=== PATIENT | male | born 1970 | race Caucasian/White ===

== ENCOUNTER 2020-10-23 15:11 | Emergency (ER) | payer SELFPAY ==
[~2020-10-23] VITALS: Ht 165.1 cm; Wt 68.2 kg
[~2020-10-23 15:11] MED LIST: LIDOcaine 1% 30ml preserv. free vial ONE; ONDA4TAB59 PO
[2020-10-23 15:39] VITALS: BP 126/76
[2020-10-23] MEDS ORDERED: TETanus/Pertussis (Acell)/Diphther VAC/PF (Tdap-Adult) 0.5ml syringe IMVAC ONE (16:30)
[2020-10-23] MEDS ORDERED: CEPH-572 PO (17:20)
== END 2020-10-23 17:42 | disposition home or self-care (01) ==
LOC: ER 15:11
DX: S81.012A Laceration without foreign body, left knee, initial encounter (principal); F17.200 Nicotine dependence, unspecified, uncomplicated; Z79.2 Long term (current) use of antibiotics; Z79.899 Other long term (current) drug therapy; W29.3XXA Contact with powered garden and outdoor hand tools and machinery, initial encounter; Y93.89 Activity, other specified; Y92.89 Other specified places as the place of occurrence of the external cause; Y99.8 Other external cause status
CPT/HCPCS: 12032; 73564; 90471; 90715; 99283; J2001; 12002

== ENCOUNTER 2022-05-20 10:12 | Inpatient (IN) | payer BC ==
[~2022-05-20] VITALS: Ht 165.1 cm; Wt 64.0 kg
[~2022-05-20 10:12] MED LIST changes: -LIDOcaine 1% 30ml preserv. free vial ONE
[2022-05-20] MEDS ORDERED: acetaminophen 325mg tablet PO STA (10:51)
[2022-05-20] MEDS ORDERED: normal saline 1000ML IV soln IV ONE ×2 (10:55)
[2022-05-20] MEDS ORDERED: ondansetron/PF 4mg/2ml inj IV ONE (10:55)
[2022-05-20] MEDS ORDERED: ketorolac trometh. 30mg/ml inj. IV ONE (10:55)
[2022-05-20] MEDS ORDERED: CefTRIAXone 2gm/D5W 50ml BAG 50 ML IV ONE (10:55)
[2022-05-20] MEDS ORDERED: azithromycin/NS 500mg/250ml 250 ML IV ONE (10:55)
[2022-05-20 10:59] LABS: BASOPHILS % (AUTO) 0.1 % (0-1); EOSINOPHILS % (AUTO) 0.1 % (0-6); HEMATOCRIT 35.9 % (42.0-52.0); HEMOGLOBIN 11.7 g/dl (14.0-17.9); LYMPHOCYTES # (AUTO) 0.4 X10'3 (1.1-4.8); LYMPHOCYTES % (AUTO) 1.9 % (21-51); MEAN CORPUSCULAR HEMOGLOBIN 28.3 PG (27.0-31.0); MEAN CORPUSCULAR HGB CONC 32.5 g/dL (33.0-36.5); MEAN CORPUSCULAR VOLUME 87.2 FL (78-98); MEAN PLATELET VOLUME 6.9 FL (7.4-10.4); MONOCYTES # (AUTO) 0.4 X10'3 (0-0.9); NEUTROPHILS # (AUTO) 20.1 X10'3 (1.8-7.7); NEUTROPHILS % (AUTO) 95.9 % (42-75); PLATELET COUNT 556 X10'3 (140-440); RED BLOOD COUNT 4.12 X10'6 (4.70-6.10); RED CELL DISTRIBUTION WIDTH 13.4 % (11.5-14.5)
[2022-05-20] MEDS ORDERED: methylPREDNISolone sod succ 125mg/2ml vial IV ONE (11:00)
[2022-05-20 11:26] LABS: ALANINE AMINOTRANSFERASE 53 U/L (12-78); ALBUMIN 2.2 G/DL (3.4-5.0); ALBUMIN/GLOBULIN RATIO 0.4 (1.1-1.5); ALKALINE PHOSPHATASE 157 IU/L (46-116); ANION GAP 13 (8-16); ASPARTATE AMINO TRANSFERASE 51 U/L (10-37); BILIRUBIN,TOTAL 0.5 MG/DL (0.1-1.0); BLOOD UREA NITROGEN 18 MG/DL (7-18); BUN/CREATININE RATIO 12.8 (5.4-32.0); CALCIUM 8.3 MG/DL (8.5-10.1); CHLORIDE 92 MMOL/L (99-107); CREATININE 1.41 MG/DL (0.60-1.10); GLUCOSE 132 MG/DL (70-104); POTASSIUM 3.1 MMOL/L (3.5-5.1); SODIUM 130 MMOL/L (135-145); TOTAL CARBON DIOXIDE 25.5 MMOL/L (24-32); TOTAL PROTEIN 8.3 G/DL (6.4-8.2); eGFR 53 ML/MIN
[2022-05-20 11:28] LABS: TOTAL CELLS COUNTED 100
[2022-05-20 11:29] LABS: PLATELET ESTIMATE INCREASED
[2022-05-20] MEDS ORDERED: NO HOME MEDS (11:36)
[2022-05-20] MEDS ORDERED: ipratropium/albuterol 3ml nebule NEB ONE (12:00)
--- NOTE | 2022-05-20 12:00 | NUR ---
Spoke with Alfredo Singh regarding drop in patient blood pressure. Discussed another 500mL bolus of fluids and reasses.
--- NOTE | 2022-05-20 13:00 | NUR ---
Hospitalist at bedside. Patient diaphoretic and still hypotensive. Patient removed from all clothing, blankets removed, put in a gown. Afebrile at this time. Hospitalist and Alfredo Edward discussed another 500mL bolus. Addendum: 05/20/22 at 1339 by BERNICE Patient denying chest pain and/or increased SOB. Is c/o mild dizziness.
[2022-05-20] MEDS ORDERED: ondansetron/PF 4mg/2ml inj IV PRN (14:35)
[2022-05-20] MEDS ORDERED: acetaminophen 325mg tablet PO PRN (14:35)
[2022-05-20] MEDS ORDERED: magnesium 2GM in 50ml NS 50 ML IV PRN (14:35)
[2022-05-20] MEDS ORDERED: magnesium hydroxide 30ml (MOM) UD suspension PO PRN (14:35)
[2022-05-20] MEDS ORDERED: magnesium 4gm in 100ml NS 100 ML IV PRN (14:35)
[2022-05-20] MEDS ORDERED: mag hydrox/Alum hydrox/simeth 30ml oral suspension PO PRN (14:35)
[2022-05-20] MEDS ORDERED: potassium CL 10mEq/100ml bag 100 ML IV PRN (14:35)
[2022-05-20] MEDS ORDERED: magnesium Cl slow-release 64mg tablet PO PRN (14:35)
[2022-05-20] MEDS ORDERED: albuterol 2.5 MG/3 ML nebule NEB PRN (15:30)
[2022-05-20] MEDS: normal saline 1000ml 1,000 ML IV SCH ×2 (16:40→19:34)
[2022-05-20 19:30] VITALS: BP 103/61
[2022-05-20] MEDS: docusate sod 100mg capsule PO SCH (20:00)
[2022-05-20] MEDS: POTASSIUM BICARB 20meq eff tab 20 MEQ TABLET.EFF PO PRN (20:23)
[2022-05-20] MEDS: K and/or MAG REPLACEMENT MC SCH (20:23)
[2022-05-20 22:00] VITALS: BP 91/55
[2022-05-21 02:00] VITALS: BP 93/58
[2022-05-21] MEDS: POTASSIUM BICARB 20meq eff tab 20 MEQ TABLET.EFF PO PRN (05:07)
[2022-05-21 06:00] VITALS: BP 106/63
[2022-05-21] MEDS ORDERED: vancomycin/NS 1 GM ADD-VANTAGE 250 ML IV ONE (06:40)
--- NOTE | 2022-05-21 06:44 | NUR ---
Notified Dr. Baig patient BC positive from Anaerobic bottle IV start positive in 18 hours Gram Positive Cocci and Clusters. Received order for Vanco 1 gm IV now and then pharmacy to dose.
--- NOTE | 2022-05-21 06:44 | NUR ---
Patient in room PCU 3023. I have received report from ANNIE BROWN and had the opportunity to ask questions and assume patient care.
[2022-05-21 07:00] LABS: BASOPHILS % (AUTO) 0 % (0-1); EOSINOPHILS % (AUTO) 0 % (0-6); HEMATOCRIT 30.3 % (42.0-52.0); LYMPHOCYTES # (AUTO) 0.9 X10'3 (1.1-4.8); LYMPHOCYTES % (AUTO) 3.6 % (21-51); MEAN CORPUSCULAR HEMOGLOBIN 28.7 PG (27.0-31.0); MEAN CORPUSCULAR HGB CONC 33.1 g/dL (33.0-36.5); MEAN CORPUSCULAR VOLUME 86.5 FL (78-98); MONOCYTES # (AUTO) 0.4 X10'3 (0-0.9); MONOCYTES % (AUTO) 1.5 % (2-12); NEUTROPHILS # (AUTO) 23.7 X10'3 (1.8-7.7); NEUTROPHILS % (AUTO) 94.9 % (42-75); PLATELET COUNT 527 X10'3 (140-440); RED CELL DISTRIBUTION WIDTH 13.6 % (11.5-14.5)
[2022-05-21 07:09] LABS: ALANINE AMINOTRANSFERASE 42 U/L (12-78); ALBUMIN 1.7 G/DL (3.4-5.0); ALBUMIN/GLOBULIN RATIO 0.3 (1.1-1.5); ALKALINE PHOSPHATASE 112 IU/L (46-116); ANION GAP 9 (8-16); ASPARTATE AMINO TRANSFERASE 37 U/L (10-37); BILIRUBIN,TOTAL 0.1 MG/DL (0.1-1.0); BLOOD UREA NITROGEN 17 MG/DL (7-18); BUN/CREATININE RATIO 22.7 (5.4-32.0); CALCIUM 7.9 MG/DL (8.5-10.1); CHLORIDE 111 MMOL/L (99-107); CREATININE 0.75 MG/DL (0.60-1.10); GLUCOSE 150 MG/DL (70-104); MAGNESIUM 2.2 MG/DL (1.5-2.4); POTASSIUM 3.5 MMOL/L (3.5-5.1); SODIUM 145 MMOL/L (135-145); eGFR > 90 ML/MIN
--- NOTE | 2022-05-21 07:24 | NUR ---
NOTIFIES DR. HICKS FOR ROOM 3023C, [place] [id number] FROM [place]'S LAB, AND YESTERDAY WAS [id number]. ANNA. Davidson RN [phone]
[2022-05-21] MEDS ORDERED: vancomycin 1,750 MG in NS 350ml IV soln IV ONE (07:30)
[2022-05-21] MEDS: docusate sod 100mg capsule PO SCH ×2 (07:47→18:25)
[2022-05-21] MEDS: CefTRIAXone/D5W-Rocephin 1gm 50 ML IV SCH (07:48)
[2022-05-21] MEDS: K and/or MAG REPLACEMENT MC SCH ×2 (08:00→18:25)
[2022-05-21] MEDS: azithromycin/NS 500mg/250ml 250 ML IV SCH (09:19)
[2022-05-21] MEDS: normal saline 1000ml 1,000 ML IV SCH ×2 (10:35→16:52)
[2022-05-21 11:08] VITALS: BP 94/60
[2022-05-21 15:00] VITALS: BP 86/48
[2022-05-21] MEDS: enoxaparin 40mg/0.4ml syringe SUBCUT SCH (18:05)
--- NOTE | 2022-05-21 18:31 | NUR ---
Problems reprioritized. Patient report given, questions answered & plan of care reviewed with DIANNA VALENCIA.
[2022-05-21 19:14] VITALS: BP 104/67
[2022-05-21 22:00] VITALS: BP 99/57
[2022-05-21] MEDS: vancomycin/NS 1 GM ADD-VANTAGE 250 ML IV SCH (22:04)
[2022-05-22 02:00] VITALS: BP 90/52
[2022-05-22] MEDS: normal saline 1000ml 1,000 ML IV SCH ×2 (05:58→16:35)
[2022-05-22 06:27] LABS: BASOPHILS % (AUTO) 0.1 % (0-1); EOSINOPHILS % (AUTO) 0 % (0-6); HEMATOCRIT 27.9 % (42.0-52.0); HEMOGLOBIN 9.2 g/dl (14.0-17.9); LYMPHOCYTES # (AUTO) 2.1 X10'3 (1.1-4.8); LYMPHOCYTES % (AUTO) 9.5 % (21-51); MEAN CORPUSCULAR HEMOGLOBIN 28.4 PG (27.0-31.0); MEAN CORPUSCULAR HGB CONC 32.8 g/dL (33.0-36.5); MEAN CORPUSCULAR VOLUME 86.7 FL (78-98); MEAN PLATELET VOLUME 7.1 FL (7.4-10.4); MONOCYTES # (AUTO) 0.6 X10'3 (0-0.9); MONOCYTES % (AUTO) 2.9 % (2-12); NEUTROPHILS # (AUTO) 19.3 X10'3 (1.8-7.7); NEUTROPHILS % (AUTO) 87.5 % (42-75); PLATELET COUNT 485 X10'3 (140-440); RED BLOOD COUNT 3.22 X10'6 (4.70-6.10); RED CELL DISTRIBUTION WIDTH 13.6 % (11.5-14.5); WHITE BLOOD COUNT 22.1 X10'3 (4.5-11.0)
--- NOTE | 2022-05-22 06:28 | NUR ---
Patient in room PCU 3023. I have received report from ANNIE Dubon and had the opportunity to ask questions and assume patient care.
[2022-05-22 06:50] LABS: ALANINE AMINOTRANSFERASE 63 U/L (12-78); ALBUMIN 1.7 G/DL (3.4-5.0); ALBUMIN/GLOBULIN RATIO 0.4 (1.1-1.5); ALKALINE PHOSPHATASE 103 IU/L (46-116); ANION GAP 9 (8-16); ASPARTATE AMINO TRANSFERASE 52 U/L (10-37); BILIRUBIN,TOTAL 0.1 MG/DL (0.1-1.0); BLOOD UREA NITROGEN 18 MG/DL (7-18); BUN/CREATININE RATIO 24.3 (5.4-32.0); CALCIUM 7.7 MG/DL (8.5-10.1); CHLORIDE 110 MMOL/L (99-107); CREATININE 0.74 MG/DL (0.60-1.10); GLUCOSE 95 MG/DL (70-104); MAGNESIUM 2.1 MG/DL (1.5-2.4); SODIUM 143 MMOL/L (135-145); TOTAL CARBON DIOXIDE 23.7 MMOL/L (24-32); TOTAL PROTEIN 6.2 G/DL (6.4-8.2); eGFR > 90 ML/MIN
--- NOTE | 2022-05-22 06:57 | NUR ---
Received critical from [facility] 3.0. Patient has potassium replacement. Will replace as ordered.
[2022-05-22 07:02] VITALS: BP 102/58
[2022-05-22] MEDS: CefTRIAXone/D5W-Rocephin 1gm 50 ML IV SCH (07:18)
[2022-05-22] MEDS: enoxaparin 40mg/0.4ml syringe SUBCUT SCH (07:18)
[2022-05-22] MEDS: POTASSIUM BICARB 20meq eff tab 20 MEQ TABLET.EFF PO PRN ×3 (07:18→16:55)
[2022-05-22] MEDS: docusate sod 100mg capsule PO SCH ×2 (07:24→19:06)
[2022-05-22] MEDS ORDERED: vancomycin/NS 1 GM ADD-VANTAGE 250 ML IV SCH (08:00)
[2022-05-22] MEDS: K and/or MAG REPLACEMENT MC SCH ×2 (08:00→19:08)
[2022-05-22] MEDS: azithromycin/NS 500mg/250ml 250 ML IV SCH (08:19)
[2022-05-22] MEDS: vancomycin/NS 1 GM ADD-VANTAGE 250 ML IV SCH ×2 (09:23→21:43)
[2022-05-22 11:09] VITALS: BP 96/55
[2022-05-22] MEDS: levoFLOXACIN 750MG TABLET PO SCH (15:01)
[2022-05-22 15:40] VITALS: BP 103/63
[2022-05-22 18:00] VITALS: BP 111/66
--- NOTE | 2022-05-22 18:16 | NUR ---
Problems reprioritized. Patient report given, questions answered & plan of care reviewed with ANNIE Dubon.
[2022-05-22] MEDS ORDERED: VANCOMYCIN LEVEL IV ONE (21:30)
[2022-05-22] MEDS: temazepam 15mg capsule PO PRN (21:43)
[2022-05-22 22:00] VITALS: BP 97/56
[2022-05-23] MEDS: normal saline 1000ml 1,000 ML IV SCH ×3 (02:36→22:43)
[2022-05-23 02:48] VITALS: BP 103/57
[2022-05-23 06:08] LABS: BASOPHILS % (AUTO) 0.2 % (0-1); EOSINOPHILS % (AUTO) 0.4 % (0-6); HEMATOCRIT 31.3 % (42.0-52.0); HEMOGLOBIN 10.5 g/dl (14.0-17.9); LYMPHOCYTES # (AUTO) 2.1 X10'3 (1.1-4.8); LYMPHOCYTES % (AUTO) 18.3 % (21-51); MEAN CORPUSCULAR HEMOGLOBIN 28.8 PG (27.0-31.0); MEAN CORPUSCULAR HGB CONC 33.6 g/dL (33.0-36.5); MEAN CORPUSCULAR VOLUME 85.5 FL (78-98); MONOCYTES # (AUTO) 0.5 X10'3 (0-0.9); MONOCYTES % (AUTO) 4.7 % (2-12); NEUTROPHILS # (AUTO) 8.7 X10'3 (1.8-7.7); NEUTROPHILS % (AUTO) 76.4 % (42-75); PLATELET COUNT 561 X10'3 (140-440); RED BLOOD COUNT 3.67 X10'6 (4.70-6.10); WHITE BLOOD COUNT 11.3 X10'3 (4.5-11.0)
[2022-05-23 06:09] LABS: ALANINE AMINOTRANSFERASE 67 U/L (12-78); ALBUMIN 1.9 G/DL (3.4-5.0); ALBUMIN/GLOBULIN RATIO 0.4 (1.1-1.5); ALKALINE PHOSPHATASE 98 IU/L (46-116); ANION GAP 9 (8-16); ASPARTATE AMINO TRANSFERASE 40 U/L (10-37); BILIRUBIN,TOTAL 0.2 MG/DL (0.1-1.0); BLOOD UREA NITROGEN 12 MG/DL (7-18); BUN/CREATININE RATIO 15.4 (5.4-32.0); CALCIUM 7.9 MG/DL (8.5-10.1); CHLORIDE 105 MMOL/L (99-107); CREATININE 0.78 MG/DL (0.60-1.10); GLUCOSE 84 MG/DL (70-104); MAGNESIUM 2.1 MG/DL (1.5-2.4); POTASSIUM 3.7 MMOL/L (3.5-5.1); SODIUM 141 MMOL/L (135-145); TOTAL CARBON DIOXIDE 26.7 MMOL/L (24-32); TOTAL PROTEIN 6.7 G/DL (6.4-8.2); eGFR > 90 ML/MIN
--- NOTE | 2022-05-23 06:36 | NUR ---
Patient in room PCU 3023. I have received report from ANNIE Scott and had the opportunity to ask questions and assume patient care.
[2022-05-23 06:51] VITALS: BP 101/60
[2022-05-23] MEDS: levoFLOXACIN 750MG TABLET PO SCH (07:24)
[2022-05-23] MEDS: docusate sod 100mg capsule PO SCH ×2 (07:25→20:00)
[2022-05-23] MEDS: enoxaparin 40mg/0.4ml syringe SUBCUT SCH (07:25)
[2022-05-23] MEDS ORDERED: levoFLOXACIN 750MG TABLET PO SCH (08:00)
[2022-05-23] MEDS: K and/or MAG REPLACEMENT MC SCH ×2 (08:00→20:00)
[2022-05-23] MEDS: vancomycin/NS 1 GM ADD-VANTAGE 250 ML IV SCH (10:12)
[2022-05-23 11:17] VITALS: BP 116/68
[2022-05-23 15:32] VITALS: BP 105/69
[2022-05-23 18:00] VITALS: BP 104/62
[2022-05-23] MEDS: temazepam 15mg capsule PO PRN (21:52)
[2022-05-23 22:00] VITALS: BP 114/70
[2022-05-23] MEDS: VANCOmycin 1250MG/NS 250ml Bag 250 ML IV SCH (22:43)
[2022-05-24 06:00] VITALS: BP 97/55
[2022-05-24 06:30] LABS: BASOPHILS % (AUTO) 0.3 % (0-1); EOSINOPHILS # (AUTO) 0.1 X10'3 (0-0.9); EOSINOPHILS % (AUTO) 0.8 % (0-6); HEMATOCRIT 35.9 % (42.0-52.0); HEMOGLOBIN 12.1 g/dl (14.0-17.9); LYMPHOCYTES % (AUTO) 14.3 % (21-51); MEAN CORPUSCULAR HEMOGLOBIN 29.1 PG (27.0-31.0); MEAN CORPUSCULAR HGB CONC 33.6 g/dL (33.0-36.5); MEAN CORPUSCULAR VOLUME 86.4 FL (78-98); MONOCYTES # (AUTO) 0.7 X10'3 (0-0.9); MONOCYTES % (AUTO) 4.9 % (2-12); NEUTROPHILS % (AUTO) 79.7 % (42-75); PLATELET COUNT 596 X10'3 (140-440); RED BLOOD COUNT 4.16 X10'6 (4.70-6.10); RED CELL DISTRIBUTION WIDTH 13.9 % (11.5-14.5); WHITE BLOOD COUNT 13.8 X10'3 (4.5-11.0)
[2022-05-24 06:47] LABS: ALANINE AMINOTRANSFERASE 146 U/L (12-78); ALBUMIN/GLOBULIN RATIO 0.4 (1.1-1.5); ALKALINE PHOSPHATASE 101 IU/L (46-116); ANION GAP 7 (8-16); ASPARTATE AMINO TRANSFERASE 120 U/L (10-37); BILIRUBIN,TOTAL 0.2 MG/DL (0.1-1.0); BLOOD UREA NITROGEN 10 MG/DL (7-18); BUN/CREATININE RATIO 12.7 (5.4-32.0); CHLORIDE 104 MMOL/L (99-107); CREATININE 0.79 MG/DL (0.60-1.10); GLUCOSE 86 MG/DL (70-104); MAGNESIUM 2.1 MG/DL (1.5-2.4); POTASSIUM 3.8 MMOL/L (3.5-5.1); SODIUM 140 MMOL/L (135-145); TOTAL CARBON DIOXIDE 28.9 MMOL/L (24-32); TOTAL PROTEIN 7.1 G/DL (6.4-8.2); eGFR > 90 ML/MIN
[2022-05-24] MEDS ORDERED: VANCOMYCIN LEVEL IV ONE (07:30)
[2022-05-24] MEDS: levoFLOXACIN 750MG TABLET PO SCH (07:45)
[2022-05-24] MEDS: enoxaparin 40mg/0.4ml syringe SUBCUT SCH (07:46)
[2022-05-24] MEDS: docusate sod 100mg capsule PO SCH (08:00)
[2022-05-24] MEDS: K and/or MAG REPLACEMENT MC SCH (08:00)
[2022-05-24 08:46] LABS: TOTAL CELLS COUNTED 100
[2022-05-24 08:47] LABS: PLATELET ESTIMATE INCREASED
[2022-05-24] MEDS ORDERED: LEVO750T68 PO (10:16)
[2022-05-24] MEDS: normal saline 1000ml 1,000 ML IV SCH (10:19)
[2022-05-24] MEDS: VANCOmycin 1250MG/NS 250ml Bag 250 ML IV SCH (10:19)
[2022-05-24 11:00] VITALS: BP 104/63
[2022-05-25] MEDS ORDERED: VANCOMYCIN LEVEL IV ONE (09:30)
== END 2022-05-24 13:14 | disposition home or self-care (01) | DRG 871 ==
LOC: ER 10:14 → ED HOLD 14:48 → PCU 3S 19:20
PROVIDERS: ADMIT Family Medicine; ATTEND Family Medicine
DX: A41.89 Other specified sepsis (principal); J18.9 Pneumonia, unspecified organism; J96.01 Acute respiratory failure with hypoxia; E87.1 Hypo-osmolality and hyponatremia; N17.9 Acute kidney failure, unspecified; E88.09 Other disorders of plasma-protein metabolism, not elsewhere classified; E87.6 Hypokalemia; D64.9 Anemia, unspecified; D75.839 Thrombocytosis, unspecified; I95.9 Hypotension, unspecified; F12.90 Cannabis use, unspecified, uncomplicated; Z20.822 Contact with and (suspected) exposure to COVID-19; Z82.49 Family history of ischemic heart disease and other diseases of the circulatory system; Z71.51 Drug abuse counseling and surveillance of drug abuser
CPT/HCPCS: 36415; 71045; 80053; 80202; 83605; 83735; 84145; 85007; 85025; 87040; 87081; 87502; 87503; 87635; 93005; 94640; 94760; 96365; 96366; 96368; 96375; 99291; 99292; A4615; C9803; G0378; J0456; J0696; J1650; J1885; J2405; J2930; J3370; J7030; J7040

== ENCOUNTER 2024-06-26 19:06 | Inpatient (IN) | payer BC, MEDICAID ==
[~2024-06-26] VITALS: Ht 165.1 cm; Wt 63.0 kg
[~2024-06-26 19:06] MED LIST changes: +LEVO750T68 PO; -ONDA4TAB59 PO
[2024-06-26] MEDS: aspirin 81mg tab.chew PO ONE (19:28)
[2024-06-26] MEDS: normal saline 1000ML IV soln IVB ONE (19:30)
[2024-06-26 19:39] LABS: BASOPHILS # (AUTO) 0.1 X10'3 (0-0.2); BASOPHILS % (AUTO) 0.5 % (0-1); EOSINOPHILS # (AUTO) 0.1 X10'3 (0-0.9); EOSINOPHILS % (AUTO) 0.3 % (0-6); HEMATOCRIT 41.1 % (42.0-52.0); HEMOGLOBIN 13.8 g/dl (14.0-17.9); LYMPHOCYTES # (AUTO) 2.1 X10'3 (1.1-4.8); LYMPHOCYTES % (AUTO) 13.6 % (21-51); MEAN CORPUSCULAR HEMOGLOBIN 29.7 PG (27.0-31.0); MEAN CORPUSCULAR HGB CONC 33.6 g/dL (33.0-36.5); MEAN CORPUSCULAR VOLUME 88.3 FL (78-98); MEAN PLATELET VOLUME 7.1 FL (7.4-10.4); MONOCYTES # (AUTO) 1.4 X10'3 (0-0.9); MONOCYTES % (AUTO) 8.9 % (2-12); NEUTROPHILS % (AUTO) 76.7 % (42-75); PLATELET COUNT 322 X10'3 (140-440); RED BLOOD COUNT 4.66 X10'6 (4.70-6.10); WHITE BLOOD COUNT 15.6 X10'3 (4.5-11.0)
[2024-06-26 19:45] LABS: APTT 29 SECONDS (22-32); D-DIMER 0.24 MG/L FEU (0-0.50); PROTHROMBIN TIME 10.6 SECONDS (9.0-12.0)
[2024-06-26 19:46] LABS: ALANINE AMINOTRANSFERASE 66 U/L (12-78); ALBUMIN 3.7 G/DL (3.4-5.0); ALBUMIN/GLOBULIN RATIO 0.8 (1.1-1.5); ALKALINE PHOSPHATASE 77 IU/L (46-116); ANION GAP 11 (8-16); ASPARTATE AMINO TRANSFERASE 166 U/L (10-37); BILIRUBIN,TOTAL 0.8 MG/DL (0.1-1.0); BLOOD UREA NITROGEN 20 MG/DL (7-18); BUN/CREATININE RATIO 18.2 (10.0-20.0); CALCIUM 9.6 MG/DL (8.5-10.1); CHLORIDE 103 MMOL/L (99-107); GLUCOSE 121 MG/DL (70-104); POTASSIUM 3.3 MMOL/L (3.5-5.1); SODIUM 140 MMOL/L (135-145); TOTAL CARBON DIOXIDE 26.4 MMOL/L (24-32); TOTAL PROTEIN 8.3 G/DL (6.4-8.2); eCRCL 67 ML/MIN; eGFR 70 ML/MIN
[2024-06-26 19:54] LABS: BILIRUBIN,DIRECT 0.1 MG/DL (0-0.3); MAGNESIUM 1.8 MG/DL (1.5-2.4); PRO BRAIN NATRIURETIC PEPTIDE 3113 PG/ML (0-125)
[2024-06-26] MEDS: nitroGLYCERIN 0.2mg/hour patch TD ONE ×2 (19:58→20:34)
[2024-06-26] MEDS: heparin 10,000 units/1 ML INJ IV ONE (20:22)
[2024-06-26] MEDS ORDERED: LIDOcaine 1% 30ml preserv. free vial ONE (20:23)
[2024-06-26] MEDS ORDERED: fentaNYL/PF 50MCG/1 ML 2ML syringe ONE (20:23)
[2024-06-26] MEDS ORDERED: iohexol 350MG/ML 100ml bottle IV ONE ×2 (20:23→21:05)
[2024-06-26] MEDS ORDERED: midazolam 1 mg/ML 2ml injection ONE (20:23)
[2024-06-26] MEDS ORDERED: verapamil 2.5 mg/ml inj IV ONE (20:23)
[2024-06-26] MEDS ORDERED: heparin 1,000unit/ml 10ml vial 10 ML ONE (20:23)
[2024-06-26] MEDS ORDERED: nitroGLYCERIN 500mcg/5mL D5W 5 ML IV ONE (20:25)
[2024-06-26] MEDS: potassium CL 10mEq/100ml bag 100 ML IV ONE (20:25)
[2024-06-26] MEDS: MESSAGE TO NURSING IV ONE (20:35)
[2024-06-26] MEDS: heparin 25,000 UNIT/250ml bag 250 ML IV PRN (20:35)
[2024-06-26] MEDS ORDERED: clopidogrel 300mg tablet ONE (21:21)
[2024-06-26] MEDS ORDERED: aspirin 325mg tablet ONE ×2 (21:21→21:26)
[2024-06-26] MEDS ORDERED: ondansetron/PF 4mg/2ml inj ONE (21:24)
[2024-06-26] MEDS ORDERED: ticagrelor 90mg tablet ONE (21:26)
[2024-06-26 21:54] VITALS: BP 126/73; PULSE 72; RESP 16; TEMP 97.8; O2SAT 97
[2024-06-26 22:45] VITALS: BP 121/68; PULSE 71; O2SAT 94
[2024-06-26] MEDS ORDERED: magnesium sulf-water 4G/100mL 100 ML IV PRN (22:55)
[2024-06-26] MEDS ORDERED: potassium Cl 20 mEq SR tablet PO PRN (22:55)
[2024-06-26] MEDS ORDERED: magnesium sulf-water 2g/50mL 50 ML IV PRN (22:55)
[2024-06-26] MEDS ORDERED: magnesium Cl slow-release 64mg tablet PO PRN (22:55)
[2024-06-26] MEDS: magnesium sulf-water 2g/50mL 50 ML IV ONE (23:08)
[2024-06-26 23:15] VITALS: BP 109/63; PULSE 69; O2SAT 94
[2024-06-26] MEDS ORDERED: nitroGLYCERIN 0.4mg SUBLingual tab SL PRN (23:15)
[2024-06-26] MEDS ORDERED: proCHLORperazine 10 MG/2 ml inj IV PRN (23:15)
[2024-06-26 23:30] VITALS: BP 115/71; PULSE 79; O2SAT 94
[2024-06-26] MEDS: potassium Cl 20 mEq SR tablet PO STA (23:39)
[2024-06-26 23:45] VITALS: BP 120/70; PULSE 68; O2SAT 94
[2024-06-27] VITALS (12 sets, daily range): BP systolic 94–128; BP diastolic 56–68; PULSE 71–87; RESP 12–26; TEMP 97.3–98.6; O2SAT 94–97
[2024-06-27 05:44] LABS: BASOPHILS % (AUTO) 0.2 % (0-1); EOSINOPHILS % (AUTO) 0.2 % (0-6); HEMOGLOBIN 12.5 g/dl (14.0-17.9); LYMPHOCYTES # (AUTO) 1.1 X10'3 (1.1-4.8); LYMPHOCYTES % (AUTO) 7.5 % (21-51); MEAN CORPUSCULAR HEMOGLOBIN 29.6 PG (27.0-31.0); MEAN CORPUSCULAR HGB CONC 32.9 g/dL (33.0-36.5); MEAN CORPUSCULAR VOLUME 89.9 FL (78-98); MEAN PLATELET VOLUME 7.3 FL (7.4-10.4); MONOCYTES # (AUTO) 1.5 X10'3 (0-0.9); MONOCYTES % (AUTO) 10.3 % (2-12); NEUTROPHILS # (AUTO) 11.9 X10'3 (1.8-7.7); NEUTROPHILS % (AUTO) 81.8 % (42-75); PLATELET COUNT 278 X10'3 (140-440); RED BLOOD COUNT 4.23 X10'6 (4.70-6.10); RED CELL DISTRIBUTION WIDTH 14.6 % (11.5-14.5); WHITE BLOOD COUNT 14.5 X10'3 (4.5-11.0)
[2024-06-27 05:57] LABS: HEMOGLOBIN A1C 5.4 % (4.5-6.2)
[2024-06-27 06:02] LABS: ALANINE AMINOTRANSFERASE 57 U/L (12-78); ALBUMIN 3.1 G/DL (3.4-5.0); ALBUMIN/GLOBULIN RATIO 0.7 (1.1-1.5); ALKALINE PHOSPHATASE 68 IU/L (46-116); ANION GAP 10 (8-16); ASPARTATE AMINO TRANSFERASE 163 U/L (10-37); BILIRUBIN,TOTAL 0.9 MG/DL (0.1-1.0); BLOOD UREA NITROGEN 17 MG/DL (7-18); BUN/CREATININE RATIO 17.9 (10.0-20.0); CALCIUM 8.6 MG/DL (8.5-10.1); CHLORIDE 105 MMOL/L (99-107); CHOL/HDL RATIO 4.8 (0.00-4.99); CHOLESTEROL 242 MG/DL (0-200); CREATININE 0.95 MG/DL (0.60-1.10); GLUCOSE 117 MG/DL (70-104); HDL CHOLESTEROL 50 MG/DL (35-60); LDL CHOLESTEROL 154 MG/DL (50-100); MAGNESIUM 2.4 MG/DL (1.5-2.4); PHOSPHORUS 2.3 MG/DL (2.3-4.5); POTASSIUM 3.5 MMOL/L (3.5-5.1); SODIUM 140 MMOL/L (135-145); TOTAL CARBON DIOXIDE 25.3 MMOL/L (24-32); TOTAL PROTEIN 7.4 G/DL (6.4-8.2); TRIGLYCERIDES 151 MG/DL (20-135); eCRCL 77 ML/MIN; eGFR 83 ML/MIN
[2024-06-27] MEDS: K and/or MAG REPLACEMENT MC SCH (08:00)
[2024-06-27] MEDS: metoprolol succinate 25mg (24-HOUR) SR. Tablet PO SCH (09:31)
[2024-06-27] MEDS: atorvastatin 20mg tablet PO SCH (09:31)
[2024-06-27] MEDS: aspirin 81mg tab.chew PO SCH (09:32)
[2024-06-27] MEDS: lisinopril 5mg tablet PO SCH (09:32)
[2024-06-27] MEDS: ticagrelor 90mg tablet PO SCH (09:33)
[2024-06-27] MEDS: potassium Cl 20 mEq SR tablet PO PRN (12:15)
[2024-06-28 02:00] VITALS: BP 106/64; PULSE 76; RESP 17; TEMP 98; O2SAT 97
[2024-06-28 06:15] LABS: MAGNESIUM 2.1 MG/DL (1.5-2.4); POTASSIUM 3.8 MMOL/L (3.5-5.1)
[2024-06-28 07:09] VITALS: BP 106/73; PULSE 85; RESP 23; TEMP 98.6; O2SAT 97
[2024-06-28 07:22] LABS: BASOPHILS % (AUTO) 0.2 % (0-1); EOSINOPHILS # (AUTO) 0.1 X10'3 (0-0.9); EOSINOPHILS % (AUTO) 0.5 % (0-6); HEMATOCRIT 38.7 % (42.0-52.0); HEMOGLOBIN 12.5 g/dl (14.0-17.9); LYMPHOCYTES % (AUTO) 13.1 % (21-51); MEAN CORPUSCULAR HEMOGLOBIN 29.3 PG (27.0-31.0); MEAN CORPUSCULAR HGB CONC 32.4 g/dL (33.0-36.5); MEAN CORPUSCULAR VOLUME 90.4 FL (78-98); MEAN PLATELET VOLUME 7.7 FL (7.4-10.4); MONOCYTES # (AUTO) 1.5 X10'3 (0-0.9); MONOCYTES % (AUTO) 10.4 % (2-12); NEUTROPHILS # (AUTO) 11.3 X10'3 (1.8-7.7); NEUTROPHILS % (AUTO) 75.8 % (42-75); PLATELET COUNT 310 X10'3 (140-440); RED BLOOD COUNT 4.28 X10'6 (4.70-6.10); RED CELL DISTRIBUTION WIDTH 14.6 % (11.5-14.5); WHITE BLOOD COUNT 14.9 X10'3 (4.5-11.0)
[2024-06-28 07:28] LABS: ALANINE AMINOTRANSFERASE 47 U/L (12-78); ALBUMIN/GLOBULIN RATIO 0.7 (1.1-1.5); ALKALINE PHOSPHATASE 65 IU/L (46-116); ANION GAP 12 (8-16); ASPARTATE AMINO TRANSFERASE 87 U/L (10-37); BILIRUBIN,TOTAL 0.6 MG/DL (0.1-1.0); BLOOD UREA NITROGEN 18 MG/DL (7-18); BUN/CREATININE RATIO 17.1 (10.0-20.0); CALCIUM 8.8 MG/DL (8.5-10.1); CHLORIDE 105 MMOL/L (99-107); CREATININE 1.05 MG/DL (0.60-1.10); GLUCOSE 101 MG/DL (70-104); SODIUM 141 MMOL/L (135-145); TOTAL CARBON DIOXIDE 23.7 MMOL/L (24-32); TOTAL PROTEIN 7.5 G/DL (6.4-8.2); eCRCL 70 ML/MIN; eGFR 74 ML/MIN
[2024-06-28 08:00] VITALS: RESP 23; O2SAT 97
[2024-06-28] MEDS ORDERED: LISI5TAB22 PO (13:51)
[2024-06-28] MEDS ORDERED: METO-395 PO (13:51)
[2024-06-28] MEDS ORDERED: ATOR20TA66 PO (13:51)
[2024-06-28] MEDS ORDERED: ASPI81TA53 PO (13:51)
[2024-06-28] MEDS ORDERED: TICA90TA PO (13:51)
[2024-06-28 16:00] VITALS: BP 100/63; PULSE 76; RESP 14; TEMP 98.6; O2SAT 98
== END 2024-06-28 18:10 | disposition home or self-care (01) | DRG 174 ==
LOC: ER 19:06 → PCU 3S 21:30
PROVIDERS: ADMIT Student in an Organized Health Care Education/Training Program; ATTEND Student in an Organized Health Care Education/Training Program
PROC: 027034Z Dilation of Coronary Artery, One Artery with Drug-eluting Intraluminal Device, Percutaneous Approach (ICD-10-PCS; principal; 2024-06-26)
PROC: B2111ZZ Fluoroscopy of Multiple Coronary Arteries using Low Osmolar Contrast (ICD-10-PCS; 2024-06-26)
PROC: 4A023N7 Measurement of Cardiac Sampling and Pressure, Left Heart, Percutaneous Approach (ICD-10-PCS; 2024-06-26)
DX: I21.21 ST elevation (STEMI) myocardial infarction involving left circumflex coronary artery (principal); E78.5 Hyperlipidemia, unspecified; I10 Essential (primary) hypertension; I21.19 ST elevation (STEMI) myocardial infarction involving other coronary artery of inferior wall; I25.10 Atherosclerotic heart disease of native coronary artery without angina pectoris; Z82.49 Family history of ischemic heart disease and other diseases of the circulatory system
CPT/HCPCS: 36415; 71045; 80048; 80053; 80061; 80076; 83036; 83735; 83880; 84100; 84484; 85025; 85347; 85379; 85610; 85730; 86885; 86900; 86901; 87081; 93005; 93306; 93454; 96365; 99152; 99153; 99291; A4615; A6258; C1725; C1751; C1769; C1874; C1894; C9606; G0378; J1644; J2250; J2405; J3010; J3490; J7030; J7040; Q9967

== ENCOUNTER 2024-06-29 11:18 | Emergency (ER) | payer MEDICAID ==
[~2024-06-29] VITALS: Ht 167.6 cm; Wt 68.2 kg
[~2024-06-29 11:18] MED LIST changes: +ASPI81TA53 PO; +ATOR20TA66 PO; -LEVO750T68 PO; +LISI5TAB22 PO; +METO-395 PO; +TICA90TA PO
[2024-06-29 11:35] LABS: BASOPHILS # (AUTO) 0.1 X10'3 (0-0.2); BASOPHILS % (AUTO) 0.4 % (0-1); EOSINOPHILS # (AUTO) 0.1 X10'3 (0-0.9); EOSINOPHILS % (AUTO) 0.5 % (0-6); HEMATOCRIT 40.4 % (42.0-52.0); HEMOGLOBIN 13.3 g/dl (14.0-17.9); LYMPHOCYTES # (AUTO) 1.5 X10'3 (1.1-4.8); LYMPHOCYTES % (AUTO) 12.7 % (21-51); MEAN CORPUSCULAR HEMOGLOBIN 29.9 PG (27.0-31.0); MEAN CORPUSCULAR VOLUME 90.6 FL (78-98); MEAN PLATELET VOLUME 7.3 FL (7.4-10.4); MONOCYTES # (AUTO) 0.8 X10'3 (0-0.9); NEUTROPHILS # (AUTO) 9.2 X10'3 (1.8-7.7); NEUTROPHILS % (AUTO) 79.4 % (42-75); PLATELET COUNT 352 X10'3 (140-440); RED BLOOD COUNT 4.46 X10'6 (4.70-6.10); RED CELL DISTRIBUTION WIDTH 14.6 % (11.5-14.5); WHITE BLOOD COUNT 11.6 X10'3 (4.5-11.0)
[2024-06-29 11:55] VITALS: TEMP 99
[2024-06-29 11:56] LABS: ALANINE AMINOTRANSFERASE 40 U/L (12-78); ALBUMIN 3.3 G/DL (3.4-5.0); ALBUMIN/GLOBULIN RATIO 0.7 (1.1-1.5); ALKALINE PHOSPHATASE 73 IU/L (46-116); ANION GAP 11 (8-16); ASPARTATE AMINO TRANSFERASE 50 U/L (10-37); BILIRUBIN,TOTAL 0.5 MG/DL (0.1-1.0); BLOOD UREA NITROGEN 22 MG/DL (7-18); BUN/CREATININE RATIO 20.4 (10.0-20.0); CALCIUM 9.5 MG/DL (8.5-10.1); CHLORIDE 104 MMOL/L (99-107); CREATININE 1.08 MG/DL (0.60-1.10); GLUCOSE 124 MG/DL (70-104); POTASSIUM 3.6 MMOL/L (3.5-5.1); SODIUM 139 MMOL/L (135-145); TOTAL CARBON DIOXIDE 24.4 MMOL/L (24-32); TOTAL PROTEIN 8.2 G/DL (6.4-8.2); eCRCL 71 ML/MIN; eGFR 71 ML/MIN
[2024-06-29 12:06] LABS: PRO BRAIN NATRIURETIC PEPTIDE 1739 PG/ML (0-125)
[2024-06-29 15:01] VITALS: BP 108/69; PULSE 75; RESP 12; O2SAT 95
== END 2024-06-29 15:00 | disposition home or self-care (01) ==
LOC: ER 11:18
DX: M54.6 Pain in thoracic spine (principal); F12.90 Cannabis use, unspecified, uncomplicated; I25.2 Old myocardial infarction; F14.90 Cocaine use, unspecified, uncomplicated; Z79.82 Long term (current) use of aspirin; Z79.899 Other long term (current) drug therapy
CPT/HCPCS: 36415; 71045; 80053; 83880; 84484; 85025; 93005; 99285

== ENCOUNTER 2024-09-25 13:51 | Inpatient (IN) | payer MEDICAID ==
[~2024-09-25] VITALS: Ht 165.1 cm; Wt 65.0 kg
[2024-09-25 14:36] LABS: BASOPHILS % (AUTO) 0.4 % (0-1); EOSINOPHILS % (AUTO) 0 % (0-6); HEMATOCRIT 49.2 % (42.0-52.0); HEMOGLOBIN 16.1 g/dl (14.0-17.9); LYMPHOCYTES # (AUTO) 0.7 X10'3 (1.1-4.8); LYMPHOCYTES % (AUTO) 6.7 % (21-51); MEAN CORPUSCULAR HEMOGLOBIN 29.1 PG (27.0-31.0); MEAN CORPUSCULAR HGB CONC 32.7 g/dL (33.0-36.5); MEAN CORPUSCULAR VOLUME 88.8 FL (78-98); MEAN PLATELET VOLUME 6.9 FL (7.4-10.4); MONOCYTES # (AUTO) 0.7 X10'3 (0-0.9); MONOCYTES % (AUTO) 7.2 % (2-12); NEUTROPHILS # (AUTO) 8.5 X10'3 (1.8-7.7); NEUTROPHILS % (AUTO) 85.7 % (42-75); PLATELET COUNT 294 X10'3 (140-440); RED BLOOD COUNT 5.54 X10'6 (4.70-6.10); RED CELL DISTRIBUTION WIDTH 14.9 % (11.5-14.5); WHITE BLOOD COUNT 9.9 X10'3 (4.5-11.0)
[2024-09-25] MEDS ORDERED: PRED10TA23 PO (14:37)
[2024-09-25] MEDS ORDERED: AZIT500T2 PO (14:37)
[2024-09-25] MEDS ORDERED: ALBU8HFA INH (14:37)
[2024-09-25 14:48] LABS: ALANINE AMINOTRANSFERASE 38 U/L (12-78); ALBUMIN 4.5 G/DL (3.4-5.0); ALBUMIN/GLOBULIN RATIO 0.9 (1.1-1.5); ALKALINE PHOSPHATASE 117 IU/L (46-116); ANION GAP 16 (8-16); ASPARTATE AMINO TRANSFERASE 41 U/L (10-37); BILIRUBIN,TOTAL 0.6 MG/DL (0.1-1.0); BLOOD UREA NITROGEN 18 MG/DL (7-18); BUN/CREATININE RATIO 12.7 (10.0-20.0); CALCIUM 9.2 MG/DL (8.5-10.1); CHLORIDE 97 MMOL/L (99-107); CREATININE 1.42 MG/DL (0.60-1.10); GLUCOSE 159 MG/DL (70-104); POTASSIUM 3.8 MMOL/L (3.5-5.1); SODIUM 135 MMOL/L (135-145); TOTAL CARBON DIOXIDE 22.4 MMOL/L (24-32); TOTAL PROTEIN 9.6 G/DL (6.4-8.2); eCRCL 52 ML/MIN; eGFR 52 ML/MIN
[2024-09-25] MEDS: ipratropium/albuterol 3ml nebule NEB ONE (14:52)
[2024-09-25 14:53] VITALS: PULSE 102; RESP 16; O2SAT 95
[2024-09-25 14:56] LABS: PRO BRAIN NATRIURETIC PEPTIDE 742 PG/ML (0-125)
[2024-09-25 15:00] VITALS: PULSE 111; RESP 16; O2SAT 96
[2024-09-25] MEDS ORDERED: magnesium hydroxide 30ml (MOM) UD suspension PO PRN (16:35)
[2024-09-25] MEDS ORDERED: ondansetron/PF 4mg/2ml inj IV PRN (16:35)
[2024-09-25] MEDS ORDERED: magnesium sulf-water 2g/50mL 50 ML IV PRN (16:35)
[2024-09-25] MEDS ORDERED: morphine 2 MG/ML inj. syringe IV PRN (16:35)
[2024-09-25] MEDS ORDERED: magnesium sulf-water 4G/100mL 100 ML IV PRN (16:35)
[2024-09-25] MEDS ORDERED: magnesium Cl slow-release 64mg tablet PO PRN (16:35)
[2024-09-25] MEDS ORDERED: potassium Cl 40MEQ/1/2NS 520ml 520 ML IV PRN (16:35)
[2024-09-25] MEDS ORDERED: potassium Cl 20 mEq SR tablet PO PRN ×2 (16:35)
[2024-09-25] MEDS ORDERED: albuterol 2.5 MG/3 ML nebule NEB PRN (16:35)
[2024-09-25] MEDS ORDERED: mag hydrox/Alum hydrox/simeth 30ml oral suspension PO PRN (16:35)
[2024-09-25] MEDS ORDERED: iohexol 350MG/ML 100ml bottle IV ONE (16:43)
[2024-09-25] MEDS: pantoprazole 40mg Tablet.DR PO ONE (16:43)
[2024-09-25] MEDS ORDERED: aminophylline 250mg/10ml inj. IV PRN (16:50)
[2024-09-25] MEDS ORDERED: nitroGLYCERIN 0.4mg SUBLingual tab SL PRN (16:50)
[2024-09-25] MEDS ORDERED: metoprolol tartrate 1mg/ml inj IV PRN (16:50)
[2024-09-25 16:59] LABS: APTT 35 SECONDS (22-32); D-DIMER 0.39 MG/L FEU (0-0.50); PROTHROMBIN TIME 10.9 SECONDS (9.0-12.0)
[2024-09-25] MEDS: normal saline 500ml IV soln 500 ML IV ONE (17:14)
[2024-09-25] MEDS: CefTRIAXone 2gm/D5W 50ml BAG 50 ML IV SCH (17:17)
[2024-09-25] MEDS: normal saline 1000ml 1,000 ML IV SCH (17:17)
[2024-09-25] MEDS: normal saline 1000ml 1,000 ML IV ONE (17:17)
[2024-09-25 17:34] LABS: BILIRUBIN,URINE NEGATIVE (Neg); CLARITY,URINE CLEAR (Clear); COLOR,URINE YELLOW (Yellow); GLUCOSE, URINE NEGATIVE (Neg); KETONES,URINE TRACE mg/dl (Neg); LEUKOCYTE ESTERASE ,URINE NEGATIVE (Neg); NITRITES, URINE NEGATIVE (Neg); OCCULT BLOOD,URINE TRACE-INTACT (Neg); PROTEIN,URINE TRACE mg/dl (Neg); UROBILINOGEN,URINE 0.2 E.U/dL (0.2-1.0)
[2024-09-25 17:37] LABS: UA COLLECTION TYPE CLN CATCH MIDSTREAM
[2024-09-25 17:40] LABS: BACTERIA,URINE NONE SEEN /HPF (Neg); MUCUS STRANDS FEW /LPF (Neg); SQUAMOUS EPITHELIAL CELL,UR FEW /LPF (FEW); WBC,URINE 0-4 /HPF (0-4)
[2024-09-25 17:43] LABS: URINE AMPHETAMINE SCREEN NEGATIVE (Neg); URINE BARBITUATE SCREEN NEGATIVE (Neg); URINE BENZODIAZEPINES SCREEN NEGATIVE (Neg); URINE CANNABINOID SCREEN POSITIVE (Neg); URINE COCAINE SCREEN NEGATIVE (Neg); URINE METHADONE SCREEN NEGATIVE (Neg); URINE OPIATE SCREEN NEGATIVE (Neg); URINE PHENCYCLIDINE SCREEN NEGATIVE (Neg)
[2024-09-25 17:51] LABS: ETHANOL < 10 MG/DL (<10); LIPASE 56 U/L (16-77)
[2024-09-25] MEDS: K and/or MAG REPLACEMENT MC SCH (20:00)
[2024-09-25 20:33] VITALS: PULSE 89; RESP 16; O2SAT 97
[2024-09-25] MEDS: ipratropium/albuterol 3ml nebule NEB SCH (20:33)
[2024-09-25 20:40] VITALS: PULSE 98; RESP 16
[2024-09-25] MEDS: ticagrelor 90mg tablet PO SCH (21:03)
[2024-09-25] MEDS: docusate sod 100mg capsule PO SCH (21:03)
[2024-09-25] MEDS: heparin, porcine 5000 units/ml vial SQ SCH (21:04)
[2024-09-25] MEDS: oseltamivir phos 75mg capsule PO SCH (22:08)
[2024-09-25 22:59] VITALS: BP 113/77; PULSE 112; RESP 13; TEMP 100.7; O2SAT 95
[2024-09-25] MEDS: acetaminophen 325mg tablet PO PRN (23:09)
[2024-09-26] VITALS (22 sets, daily range): BP systolic 97–122; BP diastolic 57–77; PULSE 69–129; RESP 12–28; TEMP 98–98.2; O2SAT 93–100
[2024-09-26] MEDS: pantoprazole 40mg Tablet.DR PO SCH (07:43)
[2024-09-26] MEDS: aspirin 81mg tab.chew PO SCH (07:44)
[2024-09-26] MEDS: atorvastatin 20mg tablet PO SCH (07:45)
[2024-09-26] MEDS: lisinopril 5mg tablet PO SCH (07:46)
[2024-09-26] MEDS: metoprolol succinate 25mg (24-HOUR) SR. Tablet PO SCH (07:46)
[2024-09-26] MEDS: predniSONE 20 mg tablet PO SCH (07:47)
[2024-09-26 07:50] LABS: BASOPHILS % (AUTO) 0.4 % (0-1); EOSINOPHILS % (AUTO) 0.1 % (0-6); HEMATOCRIT 41.5 % (42.0-52.0); LYMPHOCYTES % (AUTO) 14.8 % (21-51); MEAN CORPUSCULAR HEMOGLOBIN 29.7 PG (27.0-31.0); MEAN CORPUSCULAR HGB CONC 33.6 g/dL (33.0-36.5); MEAN CORPUSCULAR VOLUME 88.2 FL (78-98); MEAN PLATELET VOLUME 6.8 FL (7.4-10.4); MONOCYTES # (AUTO) 0.7 X10'3 (0-0.9); MONOCYTES % (AUTO) 10.8 % (2-12); NEUTROPHILS # (AUTO) 4.8 X10'3 (1.8-7.7); NEUTROPHILS % (AUTO) 73.9 % (42-75); PLATELET COUNT 234 X10'3 (140-440); RED CELL DISTRIBUTION WIDTH 14.6 % (11.5-14.5); WHITE BLOOD COUNT 6.5 X10'3 (4.5-11.0)
[2024-09-26] MEDS: azithromycin/NS 500mg/250ml 250 ML IV SCH (08:00)
[2024-09-26 08:01] LABS: APTT 34 SECONDS (22-32); PROTHROMBIN TIME 10.8 SECONDS (9.0-12.0)
[2024-09-26 08:42] LABS: ALANINE AMINOTRANSFERASE 25 U/L (12-78); ALBUMIN 3.4 G/DL (3.4-5.0); ALBUMIN/GLOBULIN RATIO 0.8 (1.1-1.5); ALKALINE PHOSPHATASE 86 IU/L (46-116); ANION GAP 12 (8-16); ASPARTATE AMINO TRANSFERASE 29 U/L (10-37); BILIRUBIN,TOTAL 0.4 MG/DL (0.1-1.0); BLOOD UREA NITROGEN 15 MG/DL (7-18); BUN/CREATININE RATIO 13.4 (10.0-20.0); CALCIUM 7.9 MG/DL (8.5-10.1); CHLORIDE 105 MMOL/L (99-107); CHOL/HDL RATIO 2.4 (0.00-4.99); CHOLESTEROL 134 MG/DL (0-200); CREATININE 1.12 MG/DL (0.60-1.10); GLUCOSE 86 MG/DL (70-104); HDL CHOLESTEROL 56 MG/DL (35-60); LDL CHOLESTEROL 67 MG/DL (50-100); MAGNESIUM 2.1 MG/DL (1.5-2.4); PHOSPHORUS 3.1 MG/DL (2.3-4.5); POTASSIUM 3.6 MMOL/L (3.5-5.1); SODIUM 139 MMOL/L (135-145); TOTAL CARBON DIOXIDE 22.1 MMOL/L (24-32); TOTAL PROTEIN 7.8 G/DL (6.4-8.2); TRIGLYCERIDES 97 MG/DL (20-135); eCRCL 66 ML/MIN; eGFR 68 ML/MIN
[2024-09-26 09:02] LABS: HEMOGLOBIN A1C 5.8 % (4.5-6.2)
[2024-09-26] MEDS: regadenoson 0.4mg/5ml syringe IV PRN (10:53)
[2024-09-26] MEDS: FLU VACC TS2024-25(6MOS UP)/PF 45 MCG/0.5 ML SYRINGE IMVAC ONE (13:18)
[2024-09-26] MEDS ORDERED: AZIT500T9 PO (16:33)
[2024-09-26] MEDS ORDERED: TAM75C PO (16:33)
[2024-09-26] MEDS ORDERED: PRED20TA PO (16:33)
[2024-09-26] MEDS ORDERED: LACT1CAP26 PO (16:33)
[2024-09-26] MEDS ORDERED: PANT40TA54 PO (16:33)
[2024-09-26] MEDS ORDERED: CEFD300C3 PO (16:33)
== END 2024-09-26 19:40 | disposition home or self-care (01) | DRG 139 ==
LOC: ER 13:51 → ED HOLD 15:41 → PCU 3S 22:20
PROVIDERS: ADMIT Family Medicine; ATTEND Family Medicine
PROC: B32T1ZZ Computerized Tomography (CT Scan) of Left Pulmonary Artery using Low Osmolar Contrast (ICD-10-PCS; 2024-09-25)
PROC: B3201ZZ Computerized Tomography (CT Scan) of Thoracic Aorta using Low Osmolar Contrast (ICD-10-PCS; 2024-09-25)
PROC: B32S1ZZ Computerized Tomography (CT Scan) of Right Pulmonary Artery using Low Osmolar Contrast (ICD-10-PCS; 2024-09-25)
PROC: 4A02XM4 Measurement of Cardiac Total Activity, External Approach (ICD-10-PCS; principal; 2024-09-26)
PROC: 3E033HZ Introduction of Radioactive Substance into Peripheral Vein, Percutaneous Approach (ICD-10-PCS; 2024-09-26)
PROC: 3E02340 Introduction of Influenza Vaccine into Muscle, Percutaneous Approach (ICD-10-PCS; 2024-09-26)
DX: J10.08 Influenza due to other identified influenza virus with other specified pneumonia (principal); I21.A1 Myocardial infarction type 2; N17.9 Acute kidney failure, unspecified; J44.0 Chronic obstructive pulmonary disease with (acute) lower respiratory infection; J44.1 Chronic obstructive pulmonary disease with (acute) exacerbation; Z20.822 Contact with and (suspected) exposure to COVID-19; J18.9 Pneumonia, unspecified organism; E78.49 Other hyperlipidemia; I10 Essential (primary) hypertension; R91.1 Solitary pulmonary nodule; I25.2 Old myocardial infarction; Z79.82 Long term (current) use of aspirin; Z79.899 Other long term (current) drug therapy; Z82.49 Family history of ischemic heart disease and other diseases of the circulatory system; Z23 Encounter for immunization
CPT/HCPCS: 36415; 70450; 71046; 71275; 78452; 80053; 80061; 80305; 80320; 81001; 83036; 83605; 83690; 83735; 83880; 84100; 84484; 85025; 85379; 85610; 85730; 87040; 87070; 87081; 87502; 87503; 87811; 90686; 93005; 93017; 93308; 94640; 94760; 99285; A9500; G0378; J0456; J0696; J1644; J2785; J7030; J7512; Q9967